=== PATIENT | female | born 1965 | race Caucasian/White ===

== ENCOUNTER 2023-06-03 14:53 | Emergency (ER) | payer MEDICAID ==
[~2023-06-03] VITALS: Ht 157.5 cm; Wt 90.7 kg
[2023-06-03 15:00] VITALS: BP_SYST 172; BP_SYST 184; PULSE 89; RESP 15; TEMP 97.9; O2SAT 96
[2023-06-03] MEDS ORDERED: HYDR-3917 PO (16:27)
[2023-06-03] MEDS ORDERED: IBUP-1969 PO (16:27)
[2023-06-03] MEDS: KETOROLAC TROMETHAMINE 60 MG/2 ML VIAL IM ONE (16:49)
[2023-06-03] MEDS: HYDROcodone/ACETAMIN 10-325 MG TAB PO ONE (16:49)
[2023-06-03 16:54] VITALS: BP_SYST 172; PULSE 89; RESP 15; TEMP 97.9; O2SAT 96
== END 2023-06-03 16:51 | disposition home or self-care (01) ==
LOC: SED 14:53
DX: M54.41 Lumbago with sciatica, right side (principal)
CPT/HCPCS: 99283; 96372; J1885